=== PATIENT | female | born 1935 | race Caucasian/White ===

== ENCOUNTER 2017-12-26 05:30 | Day surgery (SDC) | payer OTHER ==
[~2017-12-26 05:30] MED LIST: ASA81 MG PO; AVAPRO300 MG PO
[2017-12-26] MEDS ORDERED: MACROBID 100 M100 MG PO (09:41)
[2017-12-26] MEDS ORDERED: ULTRACET PO (09:42)
== END 2017-12-26 13:00 | disposition home or self-care (01) ==
LOC: CIR.AMB 05:30
DX: N81.11 Cystocele, midline (principal); N81.6 Rectocele; N81.5 Vaginal enterocele